=== PATIENT | male | born 1970 | race Hispanic/Latino ===

== ENCOUNTER 2017-05-26 13:12 | Emergency (ER) | payer OTHER ==
[2017-05-26 13:29] VITALS: BP 157/95
== END 2017-05-26 17:10 | disposition left against medical advice (07) ==
LOC: ED 13:12
DX: R10.30 Lower abdominal pain, unspecified (principal); Z53.21 Procedure and treatment not carried out due to patient leaving prior to being seen by health care provider

== ENCOUNTER 2017-05-27 11:50 | Emergency (ER) | payer OTHER ==
--- NOTE | 2017-05-27 14:16 | Emergency Department Report ---
ED Male HPI - General Chief complaint: Urogenital-Male Stated complaint: HERNIA Time Seen by Provider: 05/27/17 14:08 Source: patient, family Mode of arrival: Ambulatory Limitations: No Limitations - History of Present Illness Initial comments: Patient here reports that he has a lump to his left groin area. He is reported in lump to left groin but he's pointing to his right buttocks. He states that the area for the lump is has decreased in size since he's not been active but when he becomes active. Gets bigger. He states that he has redness to the area now. Reports pain at toilet 10 worse with movement and better at rest. He said he noted this one week ago. Patient also reports that he had lost his insurance but he was able to get it back so he needs a refill on his blood pressure meds which is lisinopril. His blood pressure in triage is 182/105 and he hasn't take if blood pressure medication for weeks now he said. He said he did have a doctor but his insurance was inactive so he could not afford to go to the doctor. He has a history of high blood pressure, disc compression in his lower back, quadruple bypass in 2015 patient is asymptomatic with his elevated blood pressure. He has no visual difficulties, no dizziness, no nausea , no headache, no shortness of breath or chest pain. He said he tried to put topical ointment on the area where he said he has a lump but it didn't work. Complaint: groin pain, other (redness to skin) Onset/Timin -: week(s) Location: right inguinal region (he says that he has hernia to his left groin pointing to his right buttocks distally.) Radiation: none Severity: mild Severity scale (0 -10): 2 Quality: dull Consistency: intermittent Improves with: rest Worsens with: palpation, movement lifting swelling, other (skin redness). denies: discharge, mass, urinary retention, blood in urine, dysuria, fever, nausea/vomiting, incontinence - Related Data Sexually active: Yes Previous Rx's Medication Instructions Recorded Last Taken Type Acetaminophen/Codeine [Tylenol 1 tab PO Q6H PRN #12 tab 05/27/17 Unknown Rx /Codeine # 3 tab] Cephalexin [Keflex] 500 mg PO Q8HR #30 cap 05/27/17 Unknown Rx Lisinopril [Zestril TAB] 40 mg PO QDAY #30 tablet 05/27/17 Unknown Rx Allergies Allergy/AdvReac Type Severity Reaction Status Date / Time No Known Allergies Allergy Verified 05/27/17 12:14 ED Review of Systems ROS: Stated complaint: HERNIA Other details as noted in HPI Comment: All other systems reviewed and negative Constitutional: no symptoms reported Eyes: denies: vision change ENT: denies: epistaxis Respiratory: no symptoms reported Cardiovascular: denies: chest pain, palpitations, dyspnea on exertion, orthopnea , edema, syncope, paroxysmal nocturnal dyspnea Genitourinary: denies: urgency, dysuria, frequency, hematuria, discharge, testicular pain, testicular mass Musculoskeletal: denies: back pain, joint swelling, arthralgia, myalgia Skin: change in color, other (redness with lump.) Neurological: denies: headache, weakness, numbness, paresthesias, confusion, abnormal gait, vertigo ED Past Medical Hx - Past Medical History Previous Medical History?: Yes Hx Hypertension: Yes Additional medical history: compressed disc - Surgical History Past Surgical History?: Yes Hx Open Heart Surgery: Yes (Quadruple 2014) Additional Surgical History: CABG - Family History Family history: hypertension - Social History Smoking Status: Current Every Day Smoker Substance Use Type: None Other Social History: - Medications Home Medications: Home Medications Medication Instructions Recorded Confirmed Last Taken Type Acetaminophen/Codeine [Tylenol 1 tab PO Q6H PRN #12 tab 05/27/17 Unknown Rx /Codeine # 3 tab] Cephalexin [Keflex] 500 mg PO Q8HR #30 cap 05/27/17 Unknown Rx Lisinopril [Zestril TAB] 40 mg PO QDAY #30 tablet 05/27/17 Unknown Rx ED Physical Exam - General Limitations: No Limitations General appearance: alert, in no apparent distress - Head Head exam: Present: atraumatic, normocephalic, normal inspection - Eye Eye exam: Present: normal appearance, PERRL, EOMI. Absent: scleral icterus, conjunctival injection, nystagmus, periorbital swelling, periorbital tenderness Pupils: Present: normal accommodation - ENT ENT exam: Present: normal exam, normal orophraynx, mucous membranes moist, TM's normal bilaterally, normal external ear exam - Neck Neck exam: Present: normal inspection, full ROM, other (No C-spine tenderness). Absent: tenderness, meningismus, lymphadenopathy, thyromegaly - Respiratory Respiratory exam: Present: normal lung sounds bilaterally. Absent: respiratory distress, wheezes, rales, rhonchi, stridor, chest wall tenderness, accessory muscle use, decreased breath sounds, prolonged expiratory - Cardiovascular Cardiovascular Exam: Present: regular rate, normal rhythm, normal heart sounds. Absent: systolic murmur, diastolic murmur - GI/Abdominal GI/Abdominal exam: Present: soft, normal bowel sounds. Absent: distended, tenderness, guarding, rebound, rigid, organomegaly, mass, bruit, pulsatile mass , hernia - exam: Present: normal inspection External exam: Present: erythema. Absent: swelling, lesions, lacerations, ecchymosis, bleeding - Extremities Exam Extremities exam: Present: normal inspection, full ROM, normal capillary refill , other (no clubbing, cyanosis or edema to extremities. +2 pulses to all extremities. No neurovascular compromise). Absent: tenderness, pedal edema, joint swelling, calf tenderness - Back Exam Back exam: Present: normal inspection, full ROM. Absent: tenderness, CVA tenderness (R), CVA tenderness (L), muscle spasm, paraspinal tenderness, vertebral tenderness, rash noted - Neurological Exam Neurological exam: Present: alert, oriented X3, normal gait, reflexes normal, other (no focal neurological deficit). Absent: motor sensory deficit - Psychiatric Psychiatric exam: Present: normal affect, normal mood - Skin Skin exam: Present: warm, dry, erythema. Absent: normal color - Expanded Skin Exam Expanded Type of lesion: Present: other (a lytic area to right inner, lateral/distal buttocks.) Distribution of rash: genitals (right inner lateral, distal buttocks is erythema area that is tender to palpation and mild swelling. No induration or fluctuance.) Description of rash: Present: tenderness, erythematous, swelling (mild). Absent : confluent, bullous, urticarial, crusting, discharge, fluctuant, indurated ED Course Vital Signs 05/27/17 12:14 Temperature 98.2 F Pulse Rate 82 Blood Pressure 182/105 O2 Sat by Pulse 98 Oximetry Vital Signs 05/27/17 05/27/17 12:14 15:26 Temperature 98.2 F Pulse Rate 82 100 H Respiratory 16 Rate Blood Pressure 182/105 Blood Pressure 140/100 [Left] O2 Sat by Pulse 98 100 Oximetry - Reevaluation(s) Reevaluation #1: 05/27/17 15:37 Patient here for refill on his blood pressure medication which is lisinopril at 40 mg. He was given lisinopril 40 mg by mouth along with clonidine 0.2 mg by mouth. Upon recheck of his pressure, blood pressure is now 140/100 manually. He. remain asymptomatic in the emergency room with elevated blood .pressure. ED Medical Decision Making - Medical Decision Making ED course: Odalis willingham requested medication on his lisinopril for which he said he hasn't taken an weeks which is he did not have any insurance and now that he has insurance she would like to request his blood pressure medication to be refilled which is lisinopril 40 mg once a day. His blood pressure has been elevated and it was 182/106 in triage. Patient remains asymptomatic with elevated blood pressure. He was given lisinopril 40 mg and clonidine 0.2 mg and emergency room and reevaluation show blood pressure 140/100. I discussed the patient that he needs to schedule an appointment with his primary care doctor for follow-up elevated blood pressure and if he did not have one "follow- up with Dr.R. Sanchez who is the on-call internal medicine doctor. Patient is also a smoker and a encouraged him to stop smoking as this can cause his blood pressure to be elevated and since he had bypass surgery smoking i is not good for his heart. He voiced understanding. Physical findings for cellulitic area to right, inner distal buttocks that is tender to palpate but no induration or fluctuance noted. Patient reports that it got better but every time he goes to work it gets worse. 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 I sent with elevated blood pressure was history of 5 blood pressure, cellulitis buttock and encounter for medication refill. He voiced understanding the discharge diagnosis and treatment plan. I also instructed him to keep a log of his blood pressure daily and to take to primary care visit with him. Discharged on prescription for lisinopril, Keflex, Tylenol 3. Critical care attestation.: If time is entered above; I have spent that time in minutes in the direct care of this critically ill patient, excluding procedure time. ED Disposition Clinical Impression: Cellulitis of buttock, right, Elevated blood-pressure reading without diagnosis of hypertension, Nicotine abuse, Encounter for medication refill, Deficient knowledge of smoking cessation Disposition: DC-01 TO HOME OR SELFCARE Is pt being admited?: No Does the pt Need Aspirin: No Condition: Stable Instructions: How to Stop Smoking (ED), Heart Healthy Diet (ED), DASH Eating Plan (ED), Low Sodium Diet (ED), Hypertension (ED), Cellulitis (ED) Additional Instructions: increase her fluid intake Please stop smoking and Take Blood pressure medication as instructed High blood pressure could lead to , stroke, kidney disease and heart attack and since you had a history of bypass surgery and high blood pressure you need to stop smoking and take your blood pressure medication is scheduled. Keep a blood pressure and take to primary care visit with here. He can take Tylenol No. 3 for pain but present do not drive or operate heavy machinery with this medication causes drowsiness Keep Affected area to right buttock clean and dry and take antibiotic as prescribed Prescriptions: Acetaminophen/Codeine [Tylenol /Codeine # 3 tab] 1 tab PO Q6H PRN #12 tab PRN Reason: Pain Cephalexin [Keflex] 500 mg PO Q8HR #30 cap Lisinopril [Zestril TAB] 40 mg PO QDAY #30 tablet Referrals: PRIMARY CAREMD [Primary Care Provider] - 3-5 Days DONNIE CLIFTON MD [Staff Physician] - 3-5 Days Forms: Work/School Release Form(ED), Accompanied Note
[2017-05-27] MEDS ORDERED: ZESTRIL PO ONE (14:22)
[2017-05-27] MEDS ORDERED: CATAPRES PO ONE (14:22)
[2017-05-27 15:28] VITALS: BP 140/100
== END 2017-05-27 15:59 | disposition home or self-care (01) ==
LOC: ED 11:50
DX: L03.317 Cellulitis of buttock (principal); I10 Essential (primary) hypertension; F17.200 Nicotine dependence, unspecified, uncomplicated
CPT/HCPCS: 99282